=== PATIENT | female | born 1965 | race Caucasian/White ===

== ENCOUNTER 2017-08-04 09:51 | Day surgery (SDC) | payer OTHER ==
[2017-08-02 10:59] VITALS: BMI 25.7
[~2017-08-04 09:51] MED LIST: LACTATED RINGERS 1,000 ML IV SCH
[2017-08-04 10:38] VITALS: RESP 18; TEMP 98.6
[2017-08-04] MEDS ORDERED: LIDOCAINE 1% 20 ML VIAL (10MG/ML) FOR IV START INTRADERMA ONE (10:46)
[2017-08-04] MEDS ORDERED: PROPOFOL 10 MG/ML 20 ML VIAL IV ONE (10:55)
[2017-08-04] MEDS ORDERED: MIDAZOLAM 2 MG/2 ML VIAL ONE (10:55)
--- NOTE | 2017-08-04 11:19 | P.PCN ---
Date of Procedure: 08/04/17 Procedure(s) Performed: Procedure: Total colonoscopy. Preoperative diagnosis: Screening for neoplasia. Postoperative diagnosis: Sigmoid diverticulosis with no evidence of acute diverticulitis, strictures, polyps or cancer. Preparation: HalfLytely prep. Sedation: Was provided by anesthesia. Brief clinical history: The patient is a 52-year-old female who is referred for this evaluation for screening for neoplasia age being her risk factor. She has no abdominal complaints, bleeding or anemia. No family history of colon cancer. This would be her first colonoscopy. Procedure: With the patient on her left lateral decubitus position and after informed consent and adequate sedation, the perianal area was inspected and it did not show any fissures or fistulas. There were no masses felt on digital rectal examination. The Olympus CFQ 160L video colonoscope was then inserted in the rectum in the usual fashion and advanced to the cecum. There were a few diverticular orifices seen scattered in the sigmoid with no evidence of acute diverticulitis or strictures. No polyps or tumors were seen. I retroflexed the endoscope in the rectum before the endoscope was withdrawn The patient tolerated the procedure well. Plan: The patient was reassured. Discussed dietary measures. She will follow- up with you as planned and I recommended repeat exam in 10 years.
[2017-08-04 11:47] VITALS: BP 115/72; PULSE 77
== END 2017-08-04 11:59 | disposition home or self-care (01) ==
LOC: ORWHC2ENDO 09:51
DX: Z12.11 Encounter for screening for malignant neoplasm of colon (principal); K57.30 Diverticulosis of large intestine without perforation or abscess without bleeding; I10 Essential (primary) hypertension; I25.10 Atherosclerotic heart disease of native coronary artery without angina pectoris; Z72.0 Tobacco use; Z79.82 Long term (current) use of aspirin; Z79.899 Other long term (current) drug therapy
CPT/HCPCS: 81025; J2250; J2704; G0121

== ENCOUNTER 2018-08-27 10:59 | Emergency (ER) | payer OTHER ==
[2018-08-27] MEDS ORDERED: LORazepam 2 MG/ML INJ IV STA (11:35)
[2018-08-27] MEDS ORDERED: LORazepam 2 MG/ML INJ IV PRN ×3 (11:35)
[2018-08-27] MEDS ORDERED: THIAMINE 100 MG/ML 2 ML VIAL IM STA (11:35)
[2018-08-27] MEDS ORDERED: SODIUM CHLORIDE 0.9% 1,000 ML IV STA (11:37)
[2018-08-27 12:32] LABS: HCT 38.5 % (34.0-46.0); HGB 12.8 gm/dL (11.4-16.0); MCH 30.5 pg (25.0-35.0); MCHC 33.2 g/dL (31.0-37.0); MCV 91.6 fL (80.0-100.0); Mean Platelet Volume 6.7; Platelet Count 265 k/uL (150-450); RDW 14.9 % (11.5-15.5); WBC 3.9 k/uL (3.8-10.6)
[2018-08-27 12:40] LABS: ALT 44 U/L (9-52); AST 85 U/L (14-36); African American GFR (CKD) >90 (>60 ml/min/1.73 sqM); Albumin 4.1 g/dL (3.5-5.0); Alkaline Phosphatase 131 U/L (38-126); Anion Gap 10 mmol/L; Blood Urea Nitrogen 8 mg/dL (7-17); Calcium 8.7 mg/dL (8.4-10.2); Carbon Dioxide 21 mmol/L (22-30); Chloride 98 mmol/L (98-107); Glucose 79 mg/dL (74-99); Magnesium 1.9 mg/dL (1.6-2.3); Non-African American GFR(CKD) >90 (>60 ml/min/1.73 sqM); Phosphorus 3.9 mg/dL (2.5-4.5); Potassium 4.4 mmol/L (3.5-5.1); Sodium 129 mmol/L (137-145); Total Bilirubin 0.3 mg/dL (0.2-1.3); Total Protein 6.8 g/dL (6.3-8.2)
[2018-08-27 12:44] LABS: Alcohol 172 mg/dL
[2018-08-27 12:58] LABS: Appearance,Urine Clear (Clear); Bilirubin,Urine Negative (Negative); Blood,Urine Negative (Negative); Color,Urine Colorless; Glucose,Urine (UA) Negative (Negative); Ketones,Urine Negative (Negative); Leukocyte Esterase,Urine Negative (Negative); Nitrite,Urine Negative (Negative); Protein,Urine Negative (Negative); Specific Gravity,Urine 1.002 (1.001-1.035); Urobilinogen,Urine <2.0 mg/dL (<2.0)
[2018-08-27 13:10] LABS: Lymphocytes # (M) 0.94 k/uL (1.0-4.8); Monocytes # (M) 0.23 k/uL (0-1.0); Neutrophils # (M) 2.73 k/uL (1.3-7.7); Neutrophils % (M) 70 %; Nucleated Red Blood Cells 0 /100 WBC (0-0); Total Cells Counted 100
[2018-08-27 13:22] LABS: Amphetamine Screen,Urine Not Detected (NotDetected); Barbiturate Screen,Urine Not Detected (NotDetected); Benzodiazepines Screen,Urine Not Detected (NotDetected); Cocaine Screen,Urine Not Detected (NotDetected); Methadone Screen, Urine Not Detected (NotDetected); Opiate Screen,Urine Not Detected (NotDetected); Oxycodone Screen, Urine Not Detected (NotDetected); Phencyclidine Screen,Urine Not Detected (NotDetected); Tricyclic Antidepressant,Urine Not Detected (NotDetected); Urn Cannabinoid Scrn Not Detected (NotDetected)
--- NOTE | 2018-08-27 15:51 | ED ---
General Adult HPI - General Source: patient, RN notes reviewed, old records reviewed Mode of arrival: ambulatory Limitations: no limitations <Sunday Larsen - Last Filed: 08/27/18 18:15> <Felisha Franks - Last Filed: 09/06/18 18:15> - General Chief complaint: Psychiatric Symptoms Stated complaint: EPS Eval Time Seen by Provider: 08/27/18 11:27 - History of Present Illness Initial comments: 53-year-old female patient with past medical history of hypertension, anxiety, daily alcohol abuse presents to ED with chief complaint of suicidal ideations. Patient reports that she has been struggling with depression as well. Approximately one year however last few days she has had thoughts that she does not wish to live anymore. Patient denies any plan to herself. Patient denies taking any action to hurt herself or hurting any other people. Patient is not currently on any psychiatric medication. Systemic: Pt denies fatigue, fever/chills, rash. Pt denies weakness, night sweats, weight loss. Neuro: Pt denies headache, visual disturbances, syncope or pre-syncope. HEENT: Pt denies ocular discharge or irritation, otalgia, rhinorrhea, pharyngitis or notable lymphadenopathy. Cardiopulmonary: Pt denies chest pain, SOB, heart palpitations, dyspnea on exertion. Abdominal/GI: Pt denies abdominal pain, n/v/d. : Pt denies dysuria, burning w/ urination, frequency/urgency. Denies new onset urinary or bowel incontinence. MSK: Pt denies myalgia, loss of strength or function in extremities. Neuro: Pt denies new onset weakness, paresthesias. (Sunday Larsen) - Related Data Home Medications Medication Instructions Recorded Confirmed LORazepam [Ativan] 1 mg PO DAILY 08/02/17 08/27/18 Losartan Potassium 100 mg PO DAILY 08/27/18 08/27/18 Metoprolol Succinate [Toprol Xl] 100 mg PO DAILY 08/27/18 08/27/18 Sertraline [Zoloft] 100 mg PO DAILY 08/27/18 08/27/18 hydrOXYzine PAMOATE 50 mg PO BID 08/27/18 08/27/18 lamoTRIgine [LaMICtal] 100 mg PO DAILY 08/27/18 08/27/18 Allergies Allergy/AdvReac Type Severity Reaction Status Date / Time No Known Allergies Allergy Verified 08/27/18 12:11 Review of Systems ROS Other: All systems not noted in ROS Statement are negative. <Sunday Larsen - Last Filed: 08/27/18 18:15> ROS Other: All systems not noted in ROS Statement are negative. <Felisha Franks - Last Filed: 09/06/18 18:15> ROS Statement: Those systems with pertinent positive or pertinent negative responses have been documented in the HPI. Past Medical History Past Medical History: Hypertension Additional Past Medical History / Comment(s): ETOH, smoker History of Any Multi-Drug Resistant Organisms: None Reported Past Surgical History: Appendectomy Additional Past Surgical History / Comment(s): 2 surgeries to lt eye Past Anesthesia/Blood Transfusion Reactions: No Reported Reaction Past Psychological History: Anxiety Smoking Status: Current every day smoker Past Alcohol Use History: Abuse Past Drug Use History: None Reported - Past Family History Mother Family Medical History: Hypertension Father Family Medical History: Coronary Artery Disease (CAD) <Sunday Larsen - Last Filed: 08/27/18 18:15> General Exam Limitations: no limitations <Sunday Larsen - Last Filed: 08/27/18 18:15> - General Exam Comments Initial Comments: Constitutional: NAD, AOX3, Pt has pleasant affect. HEENT: NC/AT, trachea midline, neck supple, no lymphadenopathy. Posterior pharynx non erythematous, without exudates. External ears appear normal, without discharge. Mucous membranes moist. Eyes PERRLA, EOM intact. There is no scleral icterus. No pallor noted. Cardiopulmonary: RRR, no murmurs, rubs or gallops, no JVD noted. Lungs CTAB in anterior and posterior guzman. No peripheral edema. Abdominal exam: Abdomen soft and non-distended. Abdomen non-tender to palpation in all 4 quadrants. Bowel sounds active in LLQ. No hepatosplenomegaly. No ecchymosis Neuro: CN II-XII grossly intact. No nuchal rigidity. No raccon eyes, no gallegos sign, no hemotympanum. No cervical spinal tenderness. MSK: No posterior calf tenderness bilaterally, homans sign negative bilaterally. Posterior tibialis and radial pulse +2 bilaterally. Sensation intact in upper and lower extremities. Full active ROM in upper and lower extremities, 5/5 stregnth. (Sunday Larsen) Course Vital Signs 08/27/18 08/27/18 08/27/18 11:22 14:30 15:58 Temperature 98.2 F 98 F 97.9 F Pulse Rate 98 90 84 Respiratory 16 18 18 Rate Blood Pressure 163/92 153/89 148/74 O2 Sat by Pulse 97 98 97 Oximetry 08/27/18 08/27/18 21:12 22:13 Temperature Pulse Rate 102 H 89 Respiratory 16 18 Rate Blood Pressure 177/92 172/110 O2 Sat by Pulse 96 98 Oximetry Procedures - [place] Protocol (Time Out) Nurse: Zahida Ding <Sunday Larsen - Last Filed: 08/27/18 18:15> Medical Decision Making - Lab Data Result diagrams: 08/27/18 12:11 08/27/18 12:11 <Sunday Larsen - Last Filed: 08/27/18 18:15> - Lab Data Result diagrams: 08/27/18 12:11 08/27/18 12:11 <Felisha Franks - Last Filed: 09/06/18 18:15> - Medical Decision Making 53-year-old female patient presents to ED with chief complaint of suicidal ideations. Patient has history of alcohol abuse. Patient vital signs stable, afebrile. Laboratory investigations revealed mild hyponatremia 129. Patient a dministered 1 L normal saline. UA and toxicology screen are negative. Serum alcohol 172. Patient initiated on Ativan protocol. Patient signed out to Felisha Franks [facility]. (Sunday Larsen) - Lab Data Lab Results 08/27/18 08/27/18 08/27/18 Range/Units 12:11 12:11 12:47 WBC 3.9 (3.8-10.6) k/uL RBC 4.20 (3.80-5.40) m/uL Hgb 12.8 (11.4-16.0) gm/dL Hct 38.5 (34.0-46.0) % MCV 91.6 (80.0-100.0) fL MCH 30.5 (25.0-35.0) pg MCHC 33.2 (31.0-37.0) g/dL RDW 14.9 (11.5-15.5) % Plt Count 265 (150-450) k/uL Neutrophils % (Manual) 70 % Lymphocytes % (Manual) 24 % Monocytes % (Manual) 6 % Neutrophils # (Manual) 2.73 (1.3-7.7) k/uL Lymphocytes # (Manual) 0.94 L (1.0-4.8) k/uL Monocytes # (Manual) 0.23 (0-1.0) k/uL Nucleated RBCs 0 (0-0) /100 WBC Manual Slide Review Performed RBC Morphology Normal Sodium 129 L (137-145) mmol/L Potassium 4.4 (3.5-5.1) mmol/L Chloride 98 (98-107) mmol/L Carbon Dioxide 21 L (22-30) mmol/L Anion Gap 10 mmol/L BUN 8 (7-17) mg/dL Creatinine 0.55 (0.52-1.04) mg/dL Est GFR (CKD-EPI)AfAm >90 (>60 ml/min/1.73 sqM) Est GFR (CKD-EPI)NonAf >90 (>60 ml/min/1.73 sqM) Glucose 79 (74-99) mg/dL Calcium 8.7 (8.4-10.2) mg/dL Phosphorus 3.9 (2.5-4.5) mg/dL Magnesium 1.9 (1.6-2.3) mg/dL Total Bilirubin 0.3 (0.2-1.3) mg/dL AST 85 H (14-36) U/L ALT 44 (9-52) U/L Alkaline Phosphatase 131 H (38-126) U/L Total Protein 6.8 (6.3-8.2) g/dL Albumin 4.1 (3.5-5.0) g/dL Urine Color Colorless Urine Appearance Clear (Clear) Urine pH 6.0 (5.0-8.0) Ur Specific [place] 1.002 (1.001-1.035) Urine Protein Negative (Negative) Urine Glucose (UA) Negative (Negative) Urine Ketones Negative (Negative) Urine Blood Negative (Negative) Urine Nitrite Negative (Negative) Urine Bilirubin Negative (Negative) Urine Urobilinogen <2.0 (<2.0) mg/dL Ur Leukocyte Esterase Negative (Negative) Urine HCG, Qual (Not Detectd) Urine Opiates Screen Not Detected (NotDetected) Ur Oxycodone Screen Not Detected (NotDetected) Urine Methadone Screen Not Detected (NotDetected) Ur Propoxyphene Screen Not Detected (NotDetected) Ur Barbiturates Screen Not Detected (NotDetected) U Tricyclic Antidepress Not Detected (NotDetected) Ur Phencyclidine Scrn Not Detected (NotDetected) Ur Amphetamines Screen Not Detected (NotDetected) U Methamphetamines Scrn Not Detected (NotDetected) U Benzodiazepines Scrn Not Detected (NotDetected) Urine Cocaine Screen Not Detected (NotDetected) U Marijuana (THC) Screen Not Detected (NotDetected) Serum Alcohol 172 mg/dL 08/27/18 Range/Units 12:47 WBC (3.8-10.6) k/uL RBC (3.80-5.40) m/uL Hgb (11.4-16.0) gm/dL Hct (34.0-46.0) % MCV (80.0-100.0) fL MCH (25.0-35.0) pg MCHC (31.0-37.0) g/dL RDW (11.5-15.5) % Plt Count (150-450) k/uL Neutrophils % (Manual) % Lymphocytes % (Manual) % Monocytes % (Manual) % Neutrophils # (Manual) (1.3-7.7) k/uL Lymphocytes # (Manual) (1.0-4.8) k/uL Monocytes # (Manual) (0-1.0) k/uL Nucleated RBCs (0-0) /100 WBC Manual Slide Review RBC Morphology Sodium (137-145) mmol/L Potassium (3.5-5.1) mmol/L Chloride (98-107) mmol/L Carbon Dioxide (22-30) mmol/L Anion Gap mmol/L BUN (7-17) mg/dL Creatinine (0.52-1.04) mg/dL Est GFR (CKD-EPI)AfAm (>60 ml/min/1.73 sqM) Est GFR (CKD-EPI)NonAf (>60 ml/min/1.73 sqM) Glucose (74-99) mg/dL Calcium (8.4-10.2) mg/dL Phosphorus (2.5-4.5) mg/dL Magnesium (1.6-2.3) mg/dL Total Bilirubin (0.2-1.3) mg/dL AST (14-36) U/L ALT (9-52) U/L Alkaline Phosphatase (38-126) U/L Total Protein (6.3-8.2) g/dL Albumin (3.5-5.0) g/dL Urine Color Urine Appearance (Clear) Urine pH (5.0-8.0) Ur Specific [place] (1.001-1.035) Urine Protein (Negative) Urine Glucose (UA) (Negative) Urine Ketones (Negative) Urine Blood (Negative) Urine Nitrite (Negative) Urine Bilirubin (Negative) Urine Urobilinogen (<2.0) mg/dL Ur Leukocyte Esterase (Negative) Urine HCG, Qual Not Detected (Not Detectd) Urine Opiates Screen (NotDetected) Ur Oxycodone Screen (NotDetected) Urine Methadone Screen (NotDetected) Ur Propoxyphene Screen (NotDetected) Ur Barbiturates Screen (NotDetected) U Tricyclic Antidepress (NotDetected) Ur Phencyclidine Scrn (NotDetected) Ur Amphetamines Screen (NotDetected) U Methamphetamines Scrn (NotDetected) U Benzodiazepines Scrn (NotDetected) Urine Cocaine Screen (NotDetected) U Marijuana (THC) Screen (NotDetected) Serum Alcohol mg/dL Disposition <Sunday Larsen - Last Filed: 08/27/18 18:15> - Out of Hospital Transfer - Req. Specs Out of Hospital Transfer - [facility] <Felisha Franks - Last Filed: 09/06/18 18:15> Clinical Impression: Suicidal ideation Disposition: TRANSFER TO PSYCH HOSP/UNIT Condition: Serious Referrals: Marquita Walker MD [Primary Care Provider] - 1-2 days
[2018-08-27 15:59] VITALS: TEMP 97.9
[2018-08-27] MEDS ORDERED: THIAMINE 100 MG TAB PO SCH (17:00)
[2018-08-27] MEDS ORDERED: ACETAMINOPHEN TAB 325 MG TAB PO STA (21:03)
[2018-08-27 22:15] VITALS: BP 172/110; PULSE 89; RESP 18
== END 2018-08-27 22:17 ==
LOC: EC 10:59
DX: R45.851 Suicidal ideations (principal); F32.9 Major depressive disorder, single episode, unspecified; E87.1 Hypo-osmolality and hyponatremia; I10 Essential (primary) hypertension; F41.9 Anxiety disorder, unspecified; F17.200 Nicotine dependence, unspecified, uncomplicated; Z79.899 Other long term (current) drug therapy
CPT/HCPCS: 82075; 36415; 80053; 83735; 84100; 85025; 81003; 81025; 80306; 80320; 99285; 96374; 96376; 96361 ×2; 96372; J2060; J3411